=== PATIENT | male | born 1960 | race Caucasian/White ===

== ENCOUNTER → 2021-04-12 11:34 | Outpatient (BNVA) | payer MEDICAID, SELFPAY | PROVIDERS: Visit Provider Family Medicine | DX: I10 Essential (primary) hypertension (principal); E11.9 Type 2 diabetes mellitus without complications; C22.0 Liver cell carcinoma; G47.33 Obstructive sleep apnea (adult) (pediatric); I16.0 Hypertensive urgency; Z72.0 Tobacco use; Z13.6 Encounter for screening for cardiovascular disorders; Z13.220 Encounter for screening for lipoid disorders | CPT/HCPCS: 80053; 80061; 83036; 83735; 85025 ==

== ENCOUNTER → 2021-07-12 11:00 | Outpatient (BNVA) | payer MEDICAID, SELFPAY | PROVIDERS: Visit Provider Family Medicine | DX: E11.9 Type 2 diabetes mellitus without complications (principal); C22.0 Liver cell carcinoma; J44.9 Chronic obstructive pulmonary disease, unspecified; L60.0 Ingrowing nail; L60.2 Onychogryphosis; G89.3 Neoplasm related pain (acute) (chronic) | CPT/HCPCS: 80053; 83036; 85025; 85610 ==

== ENCOUNTER → 2021-08-31 12:15 | Outpatient (BNVA) | payer MEDICAID, SELFPAY | PROVIDERS: Visit Provider Family Medicine | DX: Z01.818 Encounter for other preprocedural examination (principal); C22.0 Liver cell carcinoma; I10 Essential (primary) hypertension; E11.9 Type 2 diabetes mellitus without complications; J44.9 Chronic obstructive pulmonary disease, unspecified; G47.33 Obstructive sleep apnea (adult) (pediatric) | CPT/HCPCS: 80053; 85025; 85610; 85730; 87635 ==

== ENCOUNTER → 2021-09-01 00:01 | Outpatient (BNVA) | payer MEDICAID, SELFPAY | PROVIDERS: Visit Provider Family Medicine | DX: Z01.818 Encounter for other preprocedural examination (principal); Z20.822 Contact with and (suspected) exposure to COVID-19 | CPT/HCPCS: 87635 ==

== ENCOUNTER 2021-09-06 14:02 | Outpatient (CLI) | payer MEDICAID, SELFPAY ==
--- NOTE | 2021-09-06 14:26 | PFTS_ITS ---
Date of Study:09/06/21 Date of Dictation: 09/12/2021 MECHANICS: Prebronchodilator forced vital capacity (FVC) is normal. Prebronchodilator forced expiratory volume in one second (FEV1) is moderately reduced 71%. FEV1/FVC is reduced. There is no postbronchodilator study FLOW VOLUME LOOP: Sloping of expiratory limb suggestive of obstructive airway disease . LUNG VOLUMES: Not measured DIFFUSING CAPACITY FOR CARBON MONOXIDE: Not measured . INTERPRETATION: The spirometry is suggestive of moderate obstruction. Correlate clinically. MTDD
== END 2021-09-06 14:03 | disposition home or self-care (01) ==
LOC: RT 14:04
PROVIDERS: PCP Family Medicine; Visit Provider Family Medicine
DX: Z01.818 Encounter for other preprocedural examination (principal); J44.9 Chronic obstructive pulmonary disease, unspecified; C22.0 Liver cell carcinoma
CPT/HCPCS: 94010

== ENCOUNTER → 2021-09-20 08:56 | Outpatient (BNVA) | payer MEDICAID, SELFPAY | PROVIDERS: PCP Family Medicine; Visit Provider Surgery Surgical Oncology | DX: Z01.818 Encounter for other preprocedural examination (principal); Z20.822 Contact with and (suspected) exposure to COVID-19 | CPT/HCPCS: 87635 ==

== ENCOUNTER → 2021-11-06 11:19 | Outpatient (BNVA) | payer MEDICAID, SELFPAY | PROVIDERS: PCP Family Medicine; Visit Provider Family Medicine | DX: I10 Essential (primary) hypertension (principal); E11.9 Type 2 diabetes mellitus without complications; J43.9 Emphysema, unspecified | CPT/HCPCS: 80053; 83036; 85025 ==

== ENCOUNTER → 2022-02-21 11:43 | Outpatient (BNVA) | payer MEDICAID, SELFPAY | PROVIDERS: PCP Family Medicine; Visit Provider Internal Medicine Hematology & Oncology | DX: C22.0 Liver cell carcinoma (principal); E11.9 Type 2 diabetes mellitus without complications; J44.9 Chronic obstructive pulmonary disease, unspecified | CPT/HCPCS: 80053; 82105; 83036; 85025 ==

== ENCOUNTER → 2022-04-25 10:32 | Outpatient (BNVA) | payer MEDICAID, SELFPAY | PROVIDERS: PCP Family Medicine; Visit Provider Internal Medicine Hematology & Oncology | DX: C22.0 Liver cell carcinoma (principal) | CPT/HCPCS: 80053; 82105; 85025 ==

== ENCOUNTER → 2023-02-06 09:54 | Outpatient (BNVA) | payer MEDICARE, MEDICAID, SELFPAY | PROVIDERS: PCP Family Medicine; Visit Provider Family Medicine | DX: M19.011 Primary osteoarthritis, right shoulder (principal); C22.0 Liver cell carcinoma; G89.3 Neoplasm related pain (acute) (chronic) | CPT/HCPCS: 73030 ==

== ENCOUNTER → 2023-02-07 14:41 | Outpatient (BNVA) | payer MEDICARE, MEDICAID, SELFPAY | PROVIDERS: PCP Family Medicine; Referring Provider Family Medicine; Visit Provider Nurse Practitioner Family | DX: M25.511 Pain in right shoulder (principal) | CPT/HCPCS: 99203 ==

== ENCOUNTER 2023-04-30 14:27 | Emergency (ER) | payer MEDICARE, MEDICAID, SELFPAY ==
[2023-04-30 14:30] VITALS: BP 155/87; PULSE 84; RESP 22; TEMP 36.8; O2SAT 95; BMI 26.6
--- NOTE | 2023-04-30 14:30 | XRR_ITS ---
PROCEDURE INFORMATION: Exam: XR Chest Exam date and time: 04/30/2023 2:41 PM Age: 62 years old Clinical indication: Other: Unspecified chest pain; Additional info: Cp TECHNIQUE: Imaging protocol: Radiologic exam of the chest. Views: 1 view. Other technique: Frontal portable upright view of the chest. COMPARISON: CR XR shoulder RT min 2V* [id number] 02/06/2023 10:03 AM FINDINGS: Tubes, catheters and devices: EKG leads are present overlying the chest. Lungs: The pulmonary vasculature is normal. The lungs are clear bilaterally. Pleural spaces: No pleural effusion. No pneumothorax. Heart/Mediastinum: Mild cardiomegaly, exaggerated by RPO rotation. Vasculature: Mild aortic arch atherosclerotic calcification without ectasia. Bones/joints: No acute abnormality identified. XR/XR chest 1V portable [id number] IMPRESSION: No acute cardiopulmonary abnormality identified.
--- NOTE | 2023-04-30 14:30 | ECG_ITS ---
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 Measurements Intervals [facility] Rate: 82 P: 48 FL: 148 QRS: 262 QRSD: 105 T: 36 QT: 396 QTc: 463 Interpretive Statements SINUS RHYTHM PATTERN CONSISTENT WITH PULMONARY DISEASE RIGHT VENTRICULAR HYPERTROPHY [SOME/ALL OF: PROMINENT R IN V1, LATE TRANSITION, RAD, LUIS CARLOS, SSS] PROBABLE INFERIOR MYOCARDIAL INFARCTION , PROBABLY OLD [35 ms Q WAVE IN II/aVF] No previous ECG available for comparison Electronically Signed On 04-30-2023 16:35:06 CDT by Daniel Pacheco M.D. [id number]
--- NOTE | 2023-04-30 14:52 | W.ED.CHESTPA ---
HPI - Chest Pain General: Chief Complaint: Chest Pain Stated Complaint: Chest Pain Time Seen by Provider: 04/30/23 14:30 Source: EMS Mode of arrival: EMS Limitations: no limitations History of Present Illness: 62-year-old male has a history of liver cancer he is on palliative care states has been having chest pain today states also been having some abdominal distention and pain he states he did not take his OxyContin he states he just wants to get his pain under control his pain is currently 9 out of 10 denies any vomiting or diarrhea denies any cough or fever. Associated symptoms: Reports abdominal pain; Deny fever(s), nausea or vomiting Review of Systems Const: Denies: fever(s) or chills ENMT: Denies: throat pain or dental pain Card: Reports: chest pain GI: Reports: abdominal pain; Denies: nausea, vomiting or diarrhea : Denies: dysuria Musc: Denies: neck pain or back pain Skin/Breast: Denies: rash Neuro: Denies: headache(s) PFSH ED PFSH: Medical History Hypertension Amlodipine caused bradycardia. Type 2 diabetes mellitus Off metformin due to liver cancer. Surgical History History of appendectomy History of surgery of head after dog bite History of tonsillectomy and adenoidectomy Family History Mother Cancer lung cancer Social History Smoking and tobacco status: current every day smoker cigarettes Packs smoked per day: 3 Years cigarettes smoked: 50 Physical Exam Const: COMMON NORMALS: patient oriented x3 GENERAL APPEARANCE: ill appearing HENMT: COMMON NORMALS: normocephalic and atraumatic HEAD & SCALP: normocephalic and atraumatic Eye: COMMON NORMALS: Equal, round and reactive pupils present and EOMs intact bilaterally PUPIL: Yes Equal, round and reactive pupils present Neck/C-Spine: COMMON NORMALS: full ROM and supple Chest: COMMONS NORMALS: normal inspection of the chest and normal palpation of entire chest wall Resp: COMMON NORMALS: normal respiratory effort, No retractions, No use of accessory muscles and clear to auscultation bilaterally AUSCULTATION: clear to auscultation bilaterally Cardio: COMMON NORMALS: regular rate, regular rhythm and No murmurs present (Cardio) RATE: regular rate RHYTHM: regular rhythm GI: COMMON NORMALS: no masses OTHER: abdominal distension Extremity: COMMON NORMALS: normal to inspection and full ROM Neuro: COMMON NORMALS: patient oriented x3, moves all extremities and no focal motor deficits Psych: COMMON NORMALS: mental status grossly normal, Normal thought process present and cooperative THOUGHT PROCESS: Normal thought process present Skin: COMMON NORMALS: no rashes or lesions noted and no wounds NARRATIVE SKIN EXAM: jaundiced GENERAL SKIN EXAM: no rashes or lesions noted Course Vital Signs: Vital signs: Vital Signs Temperature 98.2 F 04/30/23 14:30 Pulse Rate 84 04/30/23 14:30 Respiratory Rate 24 H 04/30/23 15:07 Blood Pressure 155/87 04/30/23 14:30 Pulse Oximetry 95 04/30/23 14:30 Oxygen Delivery Me thod Room Air 04/30/23 14:30 MDM - Chest Pain Medical Decision Making Patient presents here with pains likely related to his cancer he is on palliative care work appears normal he states pain is much improved and would like to just go home at this time he is stable for discharge he is to follow-up with PCP and return if worsening Medical Records I reviewed the patient's medical records. Lab Data I reviewed the patient's lab results. 04/30/23 14:47 04/30/23 14:47 Laboratory Results WBC 8.86 10^3/uL (3.29-11.43) 04/30/23 14:47 RBC 5.55 10^6/uL (3.85-5.65) 04/30/23 14:47 Hgb 13.10 g/dL (11.27-16.99) 04/30/23 14:47 Hct 43.7 % (37-53) 04/30/23 14:47 MCV 78.7 fl (82-101) L 04/30/23 14:47 MCH 23.6 pg (27-33) L 04/30/23 14:47 MCHC 30.0 g/dL (30-55) 04/30/23 14:47 RDW 24.2 % (12.1-15.1) H 04/30/23 14:47 Plt Count 381 10^3/cmm (157-399) 04/30/23 14:47 MPV 10.2 fL (7.4-10.4) 04/30/23 14:47 Neut % (Auto) 85.6 % 04/30/23 14:47 Lymph % (Auto) 8.1 % 04/30/23 14:47 [place] % (Auto) 4.9 % 04/30/23 14:47 Eos % (Auto) 0.2 % 04/30/23 14:47 Baso % (Auto) 0.5 % 04/30/23 14:47 Neut # (Auto) 7.59 10^3/uL (1.8-7.7) 04/30/23 14:47 Lymph # (Auto) 0.7 10^3/uL (0.8-4.8) L 04/30/23 14:47 [place] # (Auto) 0.4 10^3/uL (0.2-0.9) 04/30/23 14:47 Eos # (Auto) 0.0 10^3/uL (0.0-0.8) 04/30/23 14:47 Baso # (Auto) 0.0 10^3/uL (0.0-0.1) 04/30/23 14:47 Nucleated RBC % (auto) 0.2 % 04/30/23 14:47 Nucleated RBCs # 0.0 /100WBC 04/30/23 14:47 PT 15.60 SECONDS (12.1-14.9) H 04/30/23 14:47 INR 1.20 (0.8-1.2) 04/30/23 14:47 Sodium 131 mmol/L (136-145) L 04/30/23 14:47 Potassium 4.7 mmol/L (3.5-5.1) 04/30/23 14:47 Chloride 92 mmol/L (98-107) L 04/30/23 14:47 Carbon Dioxide 19 mmol/L (22-29) L 04/30/23 14:47 Anion Gap 24.7 (5-19) H 04/30/23 14:47 BUN 20 mg/dL (8-23) 04/30/23 14:47 Creatinine 0.8 mg/dL (0.7-1.2) 04/30/23 14:47 GFR Calculation 98.0 mL/min (90-130) 04/30/23 14:47 Glucose 119 mg/dL (65-115) H 04/30/23 14:47 Calculated Osmolality 276 mOsm/kg (285-295) L 04/30/23 14:47 Calcium 9.6 mg/dL (8.5-10.5) 04/30/23 14:47 Total Bilirubin 3.4 mg/dL (0.15-1.2) H 04/30/23 14:47 AST 84 U/L (0-40) H 04/30/23 14:47 ALT 31 U/L (0-41) 04/30/23 14:47 Alkaline Phosphatase 438 U/L (40-130) H 04/30/23 14:47 Troponin T Baseline 27 ng/L (0-15) H 04/30/23 14:47 Total Protein 7.3 g/dL (6.6-8.7) 04/30/23 14:47 Albumin 2.8 g/dL (3.5-5.2) L 04/30/23 14:47 Globulin 4.5 g/dL (1.3-4.6) 04/30/23 14:47 All radiology interpretation(s) finalized by discharge EKG Data EKG 1: I personally reviewed and interpreted this EKG as follows: EKG interpretation date: 04/30/23 EKG interpretation time: 14:37 Interpretation: nsr hr [address] or t wave abnormalities qrs 105 qtc 434 Discharge Plan Discharge Patient Disposition: Home Clinical Impression: Hepatocellular carcinoma, Cancer-related pain Condition: Stable Prescriptions: No Action oxycodone 10 mg tablet 10 mg PO TID PRN (Reason: pain) 30 Days Qty: 90 0RF sildenafil 25 mg tablet 25 mg PO DAILY PRN (Reason: sexual activity) Qty: 30 0RF Rx Instructions: administer 30 minutes to 4 hours before activity losartan 100 mg tablet 100 mg PO DAILY 90 Days Qty: 90 1RF polyethylene glycol 3350 [Miralax] 17 gram/dose powder 17 g PO DAILY Qty: 850 2RF Rx Instructions: mix with 8 oz water/juice aspirin 325 mg Tablet 325 mg PO DAILY amitriptyline 50 mg tablet 50 mg PO QPM Discharge Orders: Discharge ED (Routine); Ordered 04/30/23 Ordered By: Shantal Hurtado Referrals: Santa Villalpando MD [Primary Care Provider] - 1-3 days Discharge Diet: Advance as tolerated Discharge Activity: Resume usual activity Patient Instructions: Chest Pain (ED) Coding Level of Care Code ED 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
[2023-04-30] MEDS: ondansetron 2 mg/ML SDV 2 mL 4 MG IVP (15:02)
[2023-04-30 15:07] VITALS: RESP 24
[2023-04-30] MEDS: HYDROmorphone 1 mg/mL INJ 1 mL IVP (15:07)
[2023-04-30 15:08] LABS: Basophils % 0.5 %; Eosinophils % 0.2 %; Hematocrit 43.7 % (37-53); Lymphocytes # 0.7 10^3/uL (0.8-4.8); Lymphocytes % 8.1 %; Mean Corpuscular Hemoglobin 23.6 pg (27-33); Mean Corpuscular Volume 78.7 fl (82-101); Mean Platelet Volume 10.2 fL (7.4-10.4); Monocytes # 0.4 10^3/uL (0.2-0.9); Monocytes % 4.9 %; Neutrophils # 7.59 10^3/uL (1.8-7.7); Neutrophils % 85.6 %; Nucleated Red Blood Cells % 0.2 %; Platelet Count 381 10^3/cmm (157-399); Red Blood Count 5.55 10^6/uL (3.85-5.65); Red Cell Distribution Width 24.2 % (12.1-15.1); White Blood Count 8.86 10^3/uL (3.29-11.43)
[2023-04-30 15:14] LABS: Troponin(5th) Baseline 27 ng/L (0-15)
[2023-04-30 15:23] LABS: Alanine Aminotransferase 31 U/L (0-41); Albumin Level 2.8 g/dL (3.5-5.2); Alkaline Phosphatase 438 U/L (40-130); Anion Gap 24.7 (5-19); Aspartate Amino Transferase 84 U/L (0-40); Blood Urea Nitrogen 20 mg/dL (8-23); Calcium 9.6 mg/dL (8.5-10.5); Carbon Dioxide 19 mmol/L (22-29); Chloride 92 mmol/L (98-107); Globulin 4.5 g/dL (1.3-4.6); Glucose 119 mg/dL (65-115); Osmolality Calculated 276 mOsm/kg (285-295); Potassium 4.7 mmol/L (3.5-5.1); Sodium 131 mmol/L (136-145); Total Bilirubin 3.4 mg/dL (0.15-1.2); Total Protein 7.3 g/dL (6.6-8.7)
[2023-04-30 16:05] VITALS: BP 137/86; PULSE 102; RESP 27; O2SAT 89
== END 2023-04-30 16:04 | disposition home or self-care (01) ==
PROVIDERS: Emergency Provider Emergency Medicine; PCP Family Medicine
DX: C22.0 Liver cell carcinoma (principal); G89.3 Neoplasm related pain (acute) (chronic); Z79.82 Long term (current) use of aspirin; I10 Essential (primary) hypertension; E11.9 Type 2 diabetes mellitus without complications; F17.210 Nicotine dependence, cigarettes, uncomplicated
CPT/HCPCS: 36415; 71045; 80053; 84484; 85025; 85610; 93005; 96374; 96375; 99285; J1170; J2405